=== PATIENT | male | born 1940 | race Hispanic/Latino ===

== ENCOUNTER → 2020-01-04 | Outpatient (CLI) | payer OTHER | END | disposition home or self-care (01) | LOC: OIH 14:42 | PROVIDERS: ATTEND Family Medicine | DX: M19.072 Primary osteoarthritis, left ankle and foot (principal); M25.475 Effusion, left foot; I25.10 Atherosclerotic heart disease of native coronary artery without angina pectoris | CPT/HCPCS: 73630 ==

== ENCOUNTER → 2024-11-06 | Outpatient (CLI) | payer OTHER ==
[~2024-11-06] MED LIST: IOHEXOL 350 MG/ML 100ML INFUS..BTL IV ONE
--- NOTE | 2024-11-06 10:55 | HMCIMG ---
CT CARDIAC ANGIO W/CONT. CCTA HISTORY: No additional history given. COMPARISON: None TECHNIQUE: Multiple sequential axial images of the chest were obtained along with the CT angiogram of the chest study. Patient was given 100 cc of Omnipaque through intravenous route. FINDINGS: Thyroid gland is heterogeneous. This may be related to goiter. Large hiatal hernia is seen. There is no evidence of pulmonary nodule or parenchymal disease. No pleural effusion or pericardial effusion is seen. There is no evidence of pneumothorax. There are normal size mediastinal and hilar lymph nodes. The heart is not enlarged. Degenerative changes of the thoracolumbar spine are present. IMPRESSION: 1. No evidence of pulmonary nodule or effusion is seen. Heterogeneous thyroid. Large hiatal hernia Please see CT angiogram report of coronary arteries.
== END | disposition home or self-care (01) ==
LOC: CANSCHCLI → RAH 08:12
PROVIDERS: ATTEND Internal Medicine Cardiovascular Disease
DX: K44.9 Diaphragmatic hernia without obstruction or gangrene (principal); M47.815 Spondylosis without myelopathy or radiculopathy, thoracolumbar region; R06.02 Shortness of breath
CPT/HCPCS: 75574; Q9967